=== PATIENT | female | born 1955 | race Caucasian/White ===

== ENCOUNTER 2025-02-11 06:00 | Day surgery (SDC) | payer MEDICARE ==
[~2025-02-11] VITALS: Ht 167.6 cm; Wt 98.0 kg
[~2025-02-11 06:00] MED LIST: HYDR-3490 PO; LOSA100T46 PO; MELO15TA28 PO; VITA100093 PO
[2025-02-11] MEDS ORDERED: LIDOCAINE 2% 100 MG/5 ML SDV (FOR ANES.) As Ordered ONE (07:18)
[2025-02-11] MEDS ORDERED: MIDAZOLAM INJ 2 MG/2 ML VIAL As Ordered ONE (07:18)
[2025-02-11] MEDS ORDERED: ONDANSETRON 4MG/2ML VIAL As Ordered ONE (07:18)
[2025-02-11] MEDS ORDERED: dexAMETHasone 4 MG/ML 1 ML VIAL As Ordered ONE (07:18)
[2025-02-11] MEDS ORDERED: dexmedeTOMIDine (4 MCG/ML) 200 MCG/50 ML BTL As Ordered ONE (07:23)
[2025-02-11] MEDS ORDERED: LR 1,000 ML IV SCH (07:30)
[2025-02-11] MEDS: SCOPOLAMINE 1MG TRANSDERMAL PATCH TOP ONE (07:38)
[2025-02-11] MEDS ORDERED: LIDOCAINE 5% OINT 30 GM TUBE As Ordered ONE (07:44)
[2025-02-11] MEDS ORDERED: KETOROLAC 30 MG/ML 1 ML VIAL As Ordered ONE (07:57)
[2025-02-11] MEDS ORDERED: ACETAMINOPHEN 1000MG/100ML IV BAG As Ordered ONE (07:57)
[2025-02-11] MEDS ORDERED: HYDROMORPHONE HCL 0.5 MG/0.5 ML SYRINGE IV PRN (08:25)
[2025-02-11] MEDS ORDERED: MORPHINE 2 MG/ML 1 ML VIAL IV PRN (08:25)
[2025-02-11 09:45] VITALS: BP 140/65; TEMP 97.1; O2SAT 96
== END 2025-02-11 09:54 | disposition home or self-care (01) ==
LOC: M SDC 06:00
PROVIDERS: ATTEND Orthopaedic Surgery Hand Surgery
DX: G56.01 Carpal tunnel syndrome, right upper limb (principal); I10 Essential (primary) hypertension; Z79.899 Other long term (current) drug therapy
CPT/HCPCS: 29848; J0131; J0665; J1100; J1885; J2250; J2405; J3010